=== PATIENT | female | born 1985 | race Caucasian/White ===

== ENCOUNTER 2024-10-22 20:19 | Emergency (ER) | payer MEDICAID, OTHER ==
[~2024-10-22] VITALS: Ht 154.9 cm; Wt 68.2 kg
[~2024-10-22 20:19] MED LIST: QUET400T13 PO
[2024-10-22 20:56] VITALS: TEMP 98.7
[2024-10-22] MEDS: ACETAMINOPHEN 325 MG TABLET PO ONE (23:56)
[2024-10-23 00:38] VITALS: BP 103/66; PULSE 81; RESP 18; O2SAT 98
== END 2024-10-23 03:08 | disposition short-term general hospital (02) ==
LOC: EMS 20:19
DX: S06.0XAA Concussion with loss of consciousness status unknown, initial encounter (principal); F25.9 Schizoaffective disorder, unspecified; Z79.899 Other long term (current) drug therapy; Y04.2XXA Assault by strike against or bumped into by another person, initial encounter; Y93.89 Activity, other specified; Y92.89 Other specified places as the place of occurrence of the external cause; Y99.8 Other external cause status
CPT/HCPCS: 70450; 84703; 99284